=== PATIENT | female | born 1990 | race Caucasian/White ===

== ENCOUNTER 2019-12-12 14:46 | Inpatient (IN) | payer SELFPAY ==
[~2019-12-12] VITALS: Ht 167.6 cm; Wt 82.2 kg
[~2019-12-12 14:46] MED LIST: BCP; BIRTH CONTROL; CEFD300 PO; CIPR500 PO; CITA20 PO; CLIN150 PO; FAMO20 PO; GABA100 PO; HYDACE5 PO; IUD; METR500 PO; NORETHTP; OSEL75CA PO; OXYACE7.5T PO; OXYC10TA19 PO; PHENA200 PO; PROM25 PO; RXSULTRIDS PO; RXTRAM50 PO; SUCR1 PO; SULTRIDS PO
[2019-12-12] MEDS ORDERED: PREGABALIN75 MG PO (14:50)
[2019-12-12] MEDS ORDERED: Hydrocodone-Ap1 EA20 PO (14:50)
[2019-12-12] MEDS ORDERED: Robaxin-750750 MG PO (14:51)
[2019-12-12 15:04] LABS: BASOPHILS ABSOLUTE AUTO 0.04 K/mm3 (0.00-0.23); BASOPHILS PERCENT AUTO 1 % (0-2); EOSINOPHILS PERCENT AUTO 1 % (0-6); Hematocrit 44.4 % (33.0-51.0); Hemoglobin 14.9 g/dL (11.5-16.0); IMMATURE GRAN ABSOLUTE AUTO 0.02 K/mm3 (0.00-0.10); IMMATURE GRAN PERCENT AUTO 0 % (0-1); LYMPHOCYTES ABSOLUTE AUTO 1.39 K/mm3 (0.84-5.20); LYMPHOCYTES PERCENT AUTO 16 % (21-46); MONOCYTES PERCENT AUTO 5 % (4-13); Mean Corpuscular HGB Conc 33.6 g/dL (31.5-36.5); Mean Corpuscular Volume 93 fL (80-100); Mean Platelet Volume 8.4 fL (9.1-12.4); NEUTROPHILS ABSOLUTE AUTO 6.52 K/mm3 (1.96-9.15); NEUTROPHILS PERCENT AUTO 77 % (41-73); Platelet Count 429 K/mm3 (150-400); RDW Standard Deviation 44.4 fL (35.1-46.3); White Blood Cell Count 8.47 K/mm3 (4.00-11.30)
[2019-12-12 15:24] LABS: Acetaminophen, Random <2.0 ug/mL (10.0-30.0); Alanine Aminotransfer (ALT/SGP 24 U/L (12-78); Albumin, Blood 3.9 g/dL (3.4-5.0); Albumin/Globulin Ratio 1.1 (0.8-1.8); Alk Phos 54 U/L (50-136); Anion Gap 6 mmol/L (6-16); Aspartate Aminotrans (AST/SGOT 18 U/L (12-37); Bilirubin, Total 0.5 mg/dL (0.1-1.0); Blood Urea Nitrogen 6 mg/dL (8-24); Bun/Creatinine Ratio 9.9 (12.0-20.0); CO2, Blood 21 mmol/L (21-32); Calcium, Blood 8.9 mg/dL (8.5-10.1); Chloride, Blood 114 mmol/L (98-108); Creatinine, Blood 0.61 mg/dL (0.40-1.00); Ethanol (Alcohol), Blood, Med 82 mg/dL; Globulin, Blood 3.6 g/dL (2.2-4.0); Glomerular Filtration Rate >60 (60-); Glucose, Blood 92 mg/dL (70-99); Potassium, Blood 3.8 mmol/L (3.5-5.5); Salicylate 5.4 mg/dL (2.8-20.0); Sodium, Blood 141 mmol/L (136-145); Total Protein, Blood 7.5 g/dL (6.4-8.2)
[2019-12-12 16:09] LABS: Source, Urine Voided
[2019-12-12 16:14] LABS: Bilirubin, Urine Neg (Neg); Blood, Urine 5+ (Neg); Glucose Qualitative, Urine Neg (Neg); Ketones, Urine Neg (Neg); Leukocyte Esterase, Urine Neg (Neg); Nitrite, Urine Neg (Neg); Protein, Urine Neg (Neg); Urobilinogen, Urine NORM (Normal)
[2019-12-12 16:20] LABS: Appearance, Urine Hazy (Clear); Color, Urine Yellow (P-Yellow); White Blood Cells, Urine 0-2 /hpf (0-5)
[2019-12-12 16:21] LABS: Bacteria Few /hpf; Squamous Epithelial Cells Mod /hpf (Few)
[2019-12-12 16:25] LABS: U Amphetamine Screen Not Detected; U Barbituate Screen Not Detected; U Benzodiazapine Screen Not Detected; U Buprenorphine Screen Not Detected; U Cannabinoids Screen Not Detected; U Cocaine Screen Not Detected; U Methadone Screen Not Detected; U Methamphetamine Screen Not Detected; U Opiates Screen DETECTED; U Oxycodone Screen Not Detected; U Phencyclidine Screen Not Detected; U Propoxyphene Screen Not Detected
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
--- NOTE | 2019-12-12 19:10 | NUR ---
ASSUME CARE: BEDSIDE REPORT RECIEVED FROM FAVIOLA OFF GOING RN. MONITOR INTACT SHOWING SINUS RHYTHM/SINUS TACH. HEART RATE 90'S-100'S. ARPUSES TO VERBAL STIMULI, HOWEVER RETURNS TO SLEEP IMMEDIATLY. LUNG SOUNDS CLEAR UPPER LOBES DECREASED IN THE BASES DOES NOT TAKE DEEP BREATHS TO ADWUATLY EVALUATE. RESPIRATIONS REGULAR AND EASY SPO2 96-98%. ABDOMEN SOFT WITH BOWEL SOUNDS FOUR QUADS. PEDAL PULSES PRESENT NO EDEMA NOTED. OSITO FAJARDO NOTIFIED OF CHANGE IN SUICIDE RISK ASSESSMENT. ORDERS NOTED. ONE TO ONE SITTER INITATED.DOES NOT ANSWER ALL QUESTIONS CONSISITENTLY. REFUSES TO ANSWER. CONTINUE TO MONITOR AND REPORT CHANGE IN PATIENT CONDITION.
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
--- NOTE | 2019-12-12 21:14 | NUR ---
OSITO FAJARDO NOTIFIED OF CHANGE IN RISK ASSESSMENT ORDERS NOTED
--- NOTE | 2019-12-13 01:24 | NUR ---
REQUEST "SOMETHING TO DRINK" PASSED BEDSIDE SWALLOW EVAL. NO SIGNS OF COUGHING, ASPIRATIONS , MORE ALERT AND AWAKE. CONTINUE TO MONITOR AND REPORT CHANGE IN PATIENT CONDITION
--- NOTE | 2019-12-13 06:26 | NUR ---
SHIFT SUMMARY: RESTS QUIETLY WHEN UNDISTURBED MONITOR INTACT SHOWING SINUS RHYTHM/SINUS TACH HEART RATE 90'S-100'S. LUNG SOUNDS CLEAR UPPER LOBES DECREASED SOUNDS IN THE BASES. O2 IN PLACE AT 2L/MIN OCC DESATURATES TO 86 WHEN ASLEEP , ABDOMEN SOFT WITH BOWEL SOUNDS FOUR QUADS. TOLERATES SIPS OF H2O WELL. UP TO TOILET WITH ASSIST VOIDS SMALL AMT OF URINE CONTINUE TO MONITOR AND REPORT CHANGE IN PATIENT CONDITION. VERY ANGRY RT HOSPITALIZATION ONE TO ONE SITTER IN PLACE.
[2019-12-13 07:52] LABS: BASOPHILS ABSOLUTE AUTO 0.03 K/mm3 (0.00-0.23); BASOPHILS PERCENT AUTO 1 % (0-2); EOSINOPHILS ABSOLUTE AUTO 0.11 K/mm3 (0.00-0.68); EOSINOPHILS PERCENT AUTO 2 % (0-6); Hematocrit 37.8 % (33.0-51.0); Hemoglobin 12.4 g/dL (11.5-16.0); IMMATURE GRAN ABSOLUTE AUTO 0.01 K/mm3 (0.00-0.10); IMMATURE GRAN PERCENT AUTO 0 % (0-1); LYMPHOCYTES ABSOLUTE AUTO 2.17 K/mm3 (0.84-5.20); LYMPHOCYTES PERCENT AUTO 36 % (21-46); MONOCYTES ABSOLUTE AUTO 0.43 K/mm3 (0.16-1.47); MONOCYTES PERCENT AUTO 7 % (4-13); Mean Corpuscular HGB 30.5 pg (26.0-34.0); Mean Corpuscular HGB Conc 32.8 g/dL (31.5-36.5); Mean Corpuscular Volume 93 fL (80-100); Mean Platelet Volume 8.4 fL (9.1-12.4); NEUTROPHILS ABSOLUTE AUTO 3.31 K/mm3 (1.96-9.15); NEUTROPHILS PERCENT AUTO 55 % (41-73); Platelet Count 348 K/mm3 (150-400); RDW Coefficient Variation 13.2 % (11.7-14.2); RDW Standard Deviation 45.1 fL (35.1-46.3); Red Blood Cell Count 4.07 M/mm3 (3.80-5.20); White Blood Cell Count 6.06 K/mm3 (4.00-11.30)
[2019-12-13 08:11] LABS: Salicylate 3.9 mg/dL (2.8-20.0)
[2019-12-13 08:12] LABS: Alanine Aminotransfer (ALT/SGP 20 U/L (12-78); Albumin, Blood 3.1 g/dL (3.4-5.0); Albumin/Globulin Ratio 1.1 (0.8-1.8); Alk Phos 42 U/L (50-136); Anion Gap 7 mmol/L (6-16); Aspartate Aminotrans (AST/SGOT 13 U/L (12-37); Bilirubin, Total 0.7 mg/dL (0.1-1.0); Blood Urea Nitrogen 8 mg/dL (8-24); Bun/Creatinine Ratio 12.7 (12.0-20.0); CO2, Blood 21 mmol/L (21-32); Calcium, Blood 7.4 mg/dL (8.5-10.1); Chloride, Blood 114 mmol/L (98-108); Creatinine, Blood 0.63 mg/dL (0.40-1.00); Globulin, Blood 2.9 g/dL (2.2-4.0); Glomerular Filtration Rate >60 (60-); Glucose, Blood 78 mg/dL (70-99); Potassium, Blood 3.6 mmol/L (3.5-5.5); Sodium, Blood 142 mmol/L (136-145)
--- NOTE | 2019-12-13 08:30 | NUR ---
ASSUMED CARE: REPORT RECEIVED FROM ISA Marquez RN. ASSUMED CARE OF THIS PT AT APPROX 0700. ON ASSESSMENT, THE PT IS A&O, UNWILLING TO PARTICPATE IN CARE OR CONVERSE. SHE IS SPEAKING IN MUMBLES & DIFFICULT TO UNDERSTAND AT TIMES. LS ARE CLEAR T/O, PT ON RA W/ O2 SATS > 92%. MONITOR SHOWS SR W/ HR 80-90s, BP STABLE. PT HAS NO GI COMPLAINTS OTHER THAN HUNGER, VOIDS W/O DIFFICULTY. SKIN CDI. PT DENIES SI THIS AM BUT 1:1 SITTER REMAINS AT BEDSIDE PENDING DR. DOCKERY's EVALUATION OF THE PT. WILL CONTINUE TO MONITOR & UPDATE NEEDED.
--- NOTE | 2019-12-13 09:30 | NUR ---
DR SWAN: PROVIDER AT BEDSIDE TO EVAL PT. SHE STS OKAY TO ORDER REGULAR DIET FOR THIS PT, ORDERS PLACED FOR LUNCH TRAY. NO OTHER CHANGES TO POC AT THIS TIME.
--- NOTE | 2019-12-13 09:45 | NUR ---
SAFETY PLAN: JANELL DONTRELL AT BEDSIDE TO COMPLETE SAFETY PLAN. PT IS ONLY WILLING TO PARTICIPATE MINIMALLY & STS HAVING LACK OF INTEREST IN THE PROCESS. WILL NOTIFY JANELL IF PT BECOMES MORE WILLING TO PARTICIPATE IN CARE SO THAT SAFETY PLAN CAN BE REVISED. CURRENT PLAN PLACED IN CHART.
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
--- NOTE | 2019-12-13 10:01 | NUR ---
POISON CONTROL: RN AT [facility] HAS CALLED TO CHECK ON THIS PT. UPDATED HER ON AM LABS & VS. SHE RECOMMENDS CONTINUING CURRENT POC.
--- NOTE | 2019-12-13 11:26 | NUR ---
Relayed concerns re: work and that she was to be at work today. 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 Informed RN that patient did not display interest in creating a safety plan at this time. Plan left in paper chart with very little completed. When asked if she would use a crisis line, she shrugged.
--- NOTE | 2019-12-13 16:12 | NUR ---
DR DOCKERY: PROVIDER AT BEDSIDE TO EVAL PT. HE HAS SPOKEN W/ THE PT's MOTHER TO ENSURE THAT THE PT WILL HAVE A SAFE PLACE TO GO TO IF D/C'd HOME. HE HAS ALSO SPOKEN W/ DR SWAN ABOUT BEING SAFE TO DISCHARGE & SHE AGREES. ORDERS TO BE PLACED BY PROVIDERS & THIS RN WILL COMPLETE D/C PAPERWORK.
[2019-12-13] MEDS ORDERED: PREG75 PO (17:01)
[2019-12-13] MEDS ORDERED: Norco 10-325 T1 EACH PO (17:01)
--- NOTE | 2019-12-13 17:13 | NUR ---
DISCHARGE TO HOME: D/C EDUCATION HAS BEEN COMPLETED & PT VERBALIZES UNDERSTANDING, ALTHOUGH SHE ACTS UNINTERESTED IN EDUCATION & CONTINUES TO LOOK AT HER PHONE DESPITE THIS RN REQUESTING THAT SHE DOES NOT WHILE D/C INSTRUCTIONS ARE BEING DISCUSSED. PIV & ALL MONITORS HAVE BEEN REMOVED & PT IS ABLE TO DRESS SELF W/O DIFFICULTY. PT HAS BEEN WALKED OUT OF FACILITY BY THIS RN AT 1715, ALL BELONGINGS & D/C PACKET HAVE BEEN TAKEN OUT W/ PT.
== END 2019-12-13 17:15 | disposition home or self-care (01) | DRG 918 ==
LOC: ER 14:46 → ICUE 17:10 → ICUW 17:10 → ICUE 17:46
PROVIDERS: Emergency Medicine; ADMIT Internal Medicine
DX: T65.92XA Toxic effect of unspecified substance, intentional self-harm, initial encounter (principal); F33.9 Major depressive disorder, recurrent, unspecified; F41.9 Anxiety disorder, unspecified; F10.129 Alcohol abuse with intoxication, unspecified; G89.4 Chronic pain syndrome; Z87.891 Personal history of nicotine dependence
CPT/HCPCS: 36415; 51701; 80053; 81001; 81025; 85025; 96360-59; 99285-25; A9270; C9113; G0480; J1650; J3411; J3475; J7030; J7042

== ENCOUNTER → 2020-12-18 | Outpatient (CLI) | payer BC, OTHER ==
[~2020-12-18] MED LIST changes: +Atarax10 MG; +Hydrocodone-Ap1 EA20 PO; +Norco 10-325 T1 EACH PO; +PREG75 PO; +PREGABALIN75 MG PO; +Robaxin-750750 MG PO; +VENL25
[2020-12-18 17:39] LABS: Source, Urine Clean Catch
[2020-12-18 19:35] LABS: Bilirubin, Urine Neg (Neg); Blood, Urine Neg (Neg); Glucose Qualitative, Urine Neg (Neg); Ketones, Urine 1+ (Neg); Leukocyte Esterase, Urine 1+ (Neg); Nitrite, Urine Neg (Neg); Protein, Urine 2+ (Neg); Specific Gravity, Urine 1.025 (1.003-1.022); Urobilinogen, Urine 1+ (Normal)
[2020-12-18 19:43] LABS: Appearance, Urine Hazy (Clear); Color, Urine Yellow (P-Yellow)
[2020-12-18 19:45] LABS: Bacteria Mod /hpf; Squamous Epithelial Cells Many /hpf (Few)
[2020-12-18 19:46] LABS: Calcium Oxalate Crystals Few /hpf
== END | disposition home or self-care (01) ==
LOC: LAB SHORT 10:30 → LAB 10:30
PROVIDERS: Nurse Practitioner Family
DX: N39.0 Urinary tract infection, site not specified (principal); R10.9 Unspecified abdominal pain
CPT/HCPCS: 81001; 87086

== ENCOUNTER 2024-10-12 23:57 | Emergency (ER) | payer BC, OTHER ==
[~2024-10-12] VITALS: Ht 162.6 cm; Wt 59.0 kg
[2024-10-13 01:11] VITALS: BP 105/56
[2024-10-13] MEDS ORDERED: Diazepam 5 MG / ML 2ML SYR IM ONE (03:15)
[2024-10-13] MEDS ORDERED: DIAZ2 PO (03:16)
== END 2024-10-13 03:40 | disposition home or self-care (01) ==
LOC: ER 23:57
DX: M62.830 Muscle spasm of back (principal); F17.210 Nicotine dependence, cigarettes, uncomplicated; Z79.899 Other long term (current) drug therapy; Z88.0 Allergy status to penicillin; Z88.1 Allergy status to other antibiotic agents; Z88.8 Allergy status to other drugs, medicaments and biological substances; Z88.6 Allergy status to analgesic agent
CPT/HCPCS: 72100; 96372; 99283-25; J3360